=== PATIENT | female | born 2000 | race Two or more races ===

== ENCOUNTER 2022-12-20 17:43 | Emergency (ER) | payer OTHER ==
[~2022-12-20] VITALS: Ht 165.1 cm; Wt 65.8 kg
[2022-12-20] MEDS ORDERED: IRON18 MG (18:34)
[2022-12-20] MEDS ORDERED: PRENATABS FA T1 EACH (18:34)
[2022-12-20 19:47] LABS: HEMATOCRIT 29.2 % (36.0-45.00); HEMOGLOBIN 9.8 g/dL (12.0-15.00); MEAN CELL VOLUME 78.2 fL (80.00-100.00); MEAN CORPUSCULAR HEMOGLOBIN 26.3 pg (27.00-32.0); MEAN CORPUSCULAR HGB CONC 33.7 g/dl (32.0-36.0); PLATELET COUNT 239 K/uL (150-450); RED BLOOD COUNT 3.73 M/uL (4.00-6.00); RED CELL DISTRIBUTION WIDTH 13.9 % (11.5-14.5)
[2022-12-20 19:49] LABS: URINE APPEARANCE Cloudy; URINE BILIRRUBIN Negative (NEGATIVE); URINE BLOOD Negative; URINE COLOR Yellow; URINE GLUCOSE Negative (NEGATIVE); URINE LEUKOCYTE Small; URINE NITRATE Negative; URINE PROTEIN Negative (NEGATIVE); URINE UROBILINOGEN 0.2 E.U./dl
[2022-12-20 19:51] LABS: URINE EPITHELIAL CELLS 35.8 uL (0.0-38.8); URINE WBC 129.5 uL (0.0-23.2)
[2022-12-20 20:11] LABS: CALCIUM 9.2 mg/dL (8.5-10.1); CREATININE SERUM 0.58 mg/dL (0.55-1.02); POTASSIUM 3.62 mEq/L (3.5-5.1)
== END 2022-12-20 22:18 | disposition home or self-care (01) ==
LOC: ER 17:43
PROVIDERS: General Practice
DX: O23.42 Unspecified infection of urinary tract in pregnancy, second trimester (principal); N39.0 Urinary tract infection, site not specified; Z3A.16 16 weeks gestation of pregnancy

== ENCOUNTER → 2023-01-23 09:23 | Outpatient (CLI) | payer OTHER ==
[~2023-01-23 09:23] MED LIST: IRON18 MG; PRENATABS FA T1 EACH
== END | disposition home or self-care (01) ==
LOC: PRENATAL 09:23
PROVIDERS: ATTEND Obstetrics & Gynecology Maternal & Fetal Medicine
DX: O35.3XX0 Maternal care for (suspected) damage to fetus from viral disease in mother, not applicable or unspecified (principal); O44.00 Complete placenta previa NOS or without hemorrhage, unspecified trimester; O99.891 Other specified diseases and conditions complicating pregnancy; Z3A.21 21 weeks gestation of pregnancy

== ENCOUNTER 2023-04-10 14:37 | Outpatient (CLI) | payer OTHER | END 2023-04-10 14:40 | disposition home or self-care (01) | LOC: PRENATAL 14:37 | PROVIDERS: ATTEND Obstetrics & Gynecology Maternal & Fetal Medicine | DX: O26.849 Uterine size-date discrepancy, unspecified trimester (principal); O36.8199 Decreased fetal movements, unspecified trimester, other fetus; O99.019 Anemia complicating pregnancy, unspecified trimester; Z3A.32 32 weeks gestation of pregnancy ==

== ENCOUNTER → 2023-04-26 11:32 | Outpatient (CLI) | payer OTHER | END | disposition home or self-care (01) | LOC: PRENATAL 11:32 | PROVIDERS: ATTEND Obstetrics & Gynecology Maternal & Fetal Medicine | DX: Z76.1 Encounter for health supervision and care of foundling (principal) ==